=== PATIENT | male | born 1965 | race Caucasian/White ===

== ENCOUNTER 2025-08-07 03:30 | Emergency (ER) | payer OTHER, SELFPAY ==
[2025-08-07 03:37] VITALS: BP 160/92
[2025-08-07 04:20] VITALS: BP 157/98
[2025-08-07 04:37] LABS: Hematocrit 41.6 % (39.0-52.0); Hemoglobin 14.1 g/dL (13.0-18.0); Mean Corp Hgb Conc. 33.9 g/dL (33.0-37.0); Mean Corpuscular Volume 87.0 fL (80.0-94.0); Nucleated Red Blood Cells % 0 % (-); Platelet Count 237 10^3/uL (130-400); Red Cell Dist. Width 12.3 % (11.5-14.5)
[2025-08-07 05:05] LABS: ALT (SGPT) 25 U/L (0-50); AST (SGOT) 26 U/L (17-59); Albumin 4.4 g/dl (3.5-5.0); Alkaline Phosphatase 84 U/L (38-126); Blood Urea Nitrogen 25 mg/dl (9-20); Calcium 9.4 mg/dl (8.4-10.2); Carbon Dioxide 28 mmol/L (22-30); Chloride 102 mmol/L (98-107); Glucose 108 mg/dl (70-99); Potassium 4.4 mmol/L (3.5-5.1); Sodium 136 mmol/L (135-145); Total Protein 6.8 g/dl (6.3-8.2); eGFR > 60.00
[2025-08-07 05:14] LABS: Troponin I < 0.012 ng/ml
[2025-08-07 05:49] VITALS: BP 137/84
[2025-08-07 06:00] VITALS: BP 133/81
[2025-08-07 07:03] VITALS: BP 131/85; BMI 26.7
--- NOTE | 2025-08-07 07:23 | ED.GENMED ---
History of Present Illness
General
Chief Complaint: Chest Pain
Source: patient and spouse
Exam Limitations: none
Time Seen by Provider: 08/07/25 06:39
Nursing documentation reviewed up to this point in time: agreed with
History of Present Illness
History of Present Illness:
Pt without sig. past medical history, presents to ED secondary to sudden onset of chest discomfort starting around 1am. Chest pain described as 'discomfort', nonradiating without any exacerbating or alleviating symptoms. Pt does report 'gurgling' in
his stomach. Symptoms lasted approx 1hr with spontaneous resolution of symptoms. At the time of evaluation in ED, patient denies any symptoms. Denies recent travel/surgery. Denies leg pain/back pain. Denies recent illness. Denies recent change in
activities. Denies previous history of chest pain. Denies family history of cardiac dx or blood clots. Denies recent change in medications or diet.
Past History
Past History
ED Past Medical History: None
ED Past Surgical History: None
Social History
Tobacco: Non-smoker
Personal:
Review of Systems
Review of Systems
Allergies reviewed?: Yes
All Other Systems: ROS reviewed and negative except as documented in HPI and ROS
Constitutional: Reports no symptoms
Respiratory: Reports no symptoms
Cardiac: Reports chest pain
ABD/GI: Reports no symptoms
Musculoskeletal: Reports no symptoms
Skin: Reports no symptoms
Neurological: Reports no symptoms
Phy Exam
Physical Exam
Physical Exam:
General: well nourished male, in no acute distress. afebrile
Heent: nc/at. eomi
Lungs: cta
Heart: rrr. no murmur
Abd: soft and nontender
Neuro: aao x 3. no focal neurological deficit
Skin: no rash
Psych: pleasant and cooperative
Scores
Heart Score for Chest Pain Patients
STEMI patient?: No
History: Slightly or Non-Suspicious
ECG: Normal
Age: >45 - <65 years
Risk Factors: No Risk Factors
Troponin: </= Normal Limit
Heart Score for Chest Pain Patients: 1
Heart Score Risk: 2.5% MACE over next 6 weeks
Course
Orders/Labs/Results
Orders:
Orders
08/07/25 03:56
Cardiac Monitoring- Treatment ONCE
IV Insert/Care/Rem.- Treatment PRN
CR Chest - 2 Views Urgent
Comment:
Reason For Exam: respiratory distress
O2 Therapy [RESP] Urgent
Titrate/Wean O2 to maintain O2 sat greater than (%): 93
Special Instructions: TO MAINTAIN CONTINUOUS O2 SATS >/= 93%
Pulse Ox/cont/shift [RESP] Urgent
Quantity: 1
Special Instructions: continuous pulse ox
08/07/25 04:07
Complete Blood Count/With Diff Urgent
Comprehensive Metabolic Panel Urgent
NT-proBNP Urgent
Troponin I Urgent
08/07/25 04:57
ECG [Electrocardiogram (*1)] Urgent
Reason for Study: Chest Pain
Cardiology Consult: Unknown
EKG- Treatment ONCE
08/07/25 06:55
Electrocardiogram (*1) Urgent
Reason for Study: Chest Pain
EKG- Treatment ONCE
08/07/25 06:59
Troponin I Urgent
Abnormal Lab Results
08/07/25
04:07
MPV 12.1 H fL
(7.4-10.4)
Absolute Monos (auto) 0.8 H 10^3/uL
(0.1-0.6)
Monocytes % 12.6 H %
(1.7-9.3)
BUN 25 H mg/dl
(9-20)
Glucose 108 H mg/dl
(70-99)
08/07/25 04:07
08/07/25 04:07
Vital Signs
Initial and Last Documented VS:
Initial Vital Signs
Temp Pulse Resp BP Pulse Ox
97.6 F 60 20 160/92 99
08/07/25 03:37 08/07/25 03:37 08/07/25 03:37 08/07/25 03:37 08/07/25 03:37
Last Documented Vital Signs
Temp Pulse Resp BP Pulse Ox
98.6 F 82 20 131/85 99
08/07/25 07:03 08/07/25 07:03 08/07/25 07:03 08/07/25 07:03 08/07/25 07:24
MDM/Problems Addressed
MDM/Problems Addressed:
T wave inversions noted on leads III and aVF, also noted on previous EKG from 2013, and appears to be chronic.
Pt with unremarkable workup, including repeat trop/ekg. Otherwise, patient remains afebrile, hemodynamically stable, and appears comfortable at time of discharge. Pt will be discharged home to the care of his spouse, with referral to chest pain
hotline, via low risk chest pain referral. Return precautions provided. Pt expressed understanding at time of discharge
*Pulse Oximetry
SaO2: 99
Oxygen Mode of Delivery: Room air
Patient hypoxic: no
*Critical Care Note
Total Time (30-74mins, 75-104mins- exclusive of procedures): Not Applicable
ED Attending Note
-
Portions of this chart may have been created with voice recognition software.� Occasional wrong word or��sound alike� substitutions may have occurred due to the inherent limitations of voice recognition software.
Discharge Plan
Departure
Patient Disposition: Home (Routine Discharge)
Date of Disposition: 08/07/25
Time of Disposition: 08:36
Patient with high blood pressure during this ER visit?: Yes
Discharge Problem:
Chest pain
Instructions: Chest Pain DCA Follow Up
Prescriptions:
No Action
multivitamin [Daily Multiple] 1 EACH tablet
1 tab DAILY
Glucosamine-Chondroitin Complx 1 CAP capsule
2 cap DAILY
Referrals:
Ray Haile MD [Active, Cardiology]
Stuart Vogt MD [Family Provider, Internal Medicine]
Activity Restrictions/Additional Instructions:
As discussed, please follow up with your primary care physician and/or referred [facility] for further evaluation and treatment. Please return to ED with recurrent chest pain
Interventions
Interventions:
*General Assessment Last Done: 08/07/25 03:37
*Neglect/Abuse Screening Last Done: 08/07/25 03:37
*ED COVID-19 Vaccine History Last Done: 08/07/25 03:37
*ED Influenza Vaccine History Last Done: 08/07/25 03:37
[facility] Risk Assessment Tool Last Done: 08/07/25 04:21
*Risk Screen - Suicide (C-SSRS) Last Done: 08/07/25 08:36
*Nursing Disposition Last Done: 08/07/25 08:36
ED- Cardiac Assessment Last Done: 08/07/25 04:18
Discharge Date and Time
Discharge Date/Time: 08/07/25 08:38
Print Language: ARMENIAN
[2025-08-07 07:31] LABS: Troponin I < 0.012 ng/ml
== END 2025-08-07 08:38 | disposition home or self-care (01) ==
LOC: EMR 03:30
PROVIDERS: Emergency Medicine; EMERGENCY PHYSICIAN Emergency Medicine; FAMILY PHYSICIAN Internal Medicine
DX: R07.9 Chest pain, unspecified (principal); R03.0 Elevated blood-pressure reading, without diagnosis of hypertension
CPT/HCPCS: 99284; 71046; 80053; 83880; 84484; 85025; 93005